=== PATIENT | male | born 1955 | race Caucasian/White ===

== ENCOUNTER 2021-04-05 06:08 | Day surgery (SDC) | payer MEDICARE, OTHER ==
[~2021-04-05 06:08] MED LIST: ACTOPLUS M15 MG/500 PO; CYMBALTA60 MG PO; GLIMEPIRIDE2 MG PO; LISINOPRIL5 MG PO; METFORMIN HCL1000 M1 PO; OMEPRAZOLE DR40 MG PO; PRAMIPEXOLE DI0.5 MG PO; TRAZODONE100 MG PO
[2021-04-05 06:49] VITALS: BP 138/74
[2021-05-02] MEDS ORDERED: ACTOPLUS M15 MG/500 PO (11:24)
[2021-05-02] MEDS ORDERED: OMEPRAZOLE DR40 MG (11:25)
[2021-05-02] MEDS ORDERED: METFORMIN500 M2 PO (11:25)
[2021-05-02] MEDS ORDERED: TRAMADOL HCL50 MG PO (11:25)
[2021-05-02] MEDS ORDERED: AMARYL4 MG PO (11:25)
== END 2021-04-05 07:25 | disposition home or self-care (01) ==
LOC: ENDO 06:08
PROVIDERS: ATTEND Surgery
DX: Z12.11 Encounter for screening for malignant neoplasm of colon (principal); R00.8 Other abnormalities of heart beat; Z53.09 Procedure and treatment not carried out because of other contraindication; I10 Essential (primary) hypertension; E11.9 Type 2 diabetes mellitus without complications; Z79.84 Long term (current) use of oral hypoglycemic drugs; Z86.010 Personal history of colon polyps

== ENCOUNTER 2021-04-13 00:04 | Observation (INO) | payer MEDICARE, OTHER ==
[~2021-04-13] VITALS: Ht 185.4 cm; Wt 86.3 kg
[2021-04-13 01:48] LABS: HEMATOCRIT 37.1 % (39.0-50.0); HEMOGLOBIN 12.5 g/dl (14.0-18.0); IMMATURE GRANULOCYTES 0.2 % (0.0-5.0); MEAN CORPUSCULAR HGB 31.3 pG CALC (26.0-32.0); MEAN CORPUSCULAR HGB CONC 33.7 g/dL CAL (32.0-36.0); NEUT# 9.05 thou/uL (1.82-7.42); RED BLOOD COUNT 3.99 mill/uL (4.70-6.10); RED CELL DISTRI WIDTH 12.9 % (11.5-15.5)
[2021-04-13 02:03] LABS: ALBUMIN 3.3 g/dL (3.2-5.0); ALKALINE PHOSPHATASE 55 u/l (38-126); ANION GAP 10 (6-22 (CALC)); BILIRUBIN, TOTAL 0.4 mg/dL (0.0-1.4); BUN 14 mg/dL (8-23); BUN/CREATININE RATIO 15 (12-20 (CALC)); CARBON DIOXIDE 24 mmol/l (22-30); CHLORIDE 92 mmol/l (95-108); CREATININE 0.9 mg/dL (0.7-1.3); GFR > 60 ML/MIN (>=60 (CALC)); GFR FOR AFR.AMER. > 60 ML/MIN (>=60 (CALC)); POTASSIUM 3.7 mmol/l (3.5-5.1); SGOT/AST 36 u/l (19-48); SODIUM 123 mmol/l (137-146); TOTAL PROTEIN 6.1 g/dL (6.3-8.2)
[2021-04-13 02:15] LABS: MYOGLOBIN 175 ng/mL (0 - 121)
[2021-04-13 05:32] LABS: URINE BILIRUBIN - DIPSTICK NEGATIVE (NEGATIVE); URINE BLOOD DIPSTICK SMALL (NEGATIVE); URINE CLARITY CLEAR; URINE COLOR YELLOW; URINE GLUCOSE - DIPSTICK NEGATIVE (NEGATIVE); URINE KETONE 15 mg/dL (NEGATIVE); URINE NITRITE - DIPSTICK NEGATIVE (Negative); URINE PROTEIN - DIPSTICK NEGATIVE (NEG-TRACE); URINE UROBILINOGEN - DIPSTICK 0.2 E.U./dL (0.2)
[2021-04-13 05:48] LABS: URINE LEUK ESTERASE NEGATIVE (Negative)
[2021-04-13 05:49] LABS: URINE WBC 0-2 WBC/hpf (0-5)
[2021-04-13 05:50] LABS: URINE BACTERIA FEW hpf; URINE EPITHELIAL CELLS FEW EPI/hpf (0-FEW)
[2021-04-13 07:32] VITALS: BP 113/60
[2021-04-13] MEDS ORDERED: AZITHROMYCIN500 MG PO (12:40)
[2021-04-13] MEDS ORDERED: OMNICEF300 M1 PO (12:41)
[2021-05-02] MEDS ORDERED: ACTOPLUS M15 MG/500 PO (11:24)
[2021-05-02] MEDS ORDERED: AMARYL4 MG PO (11:25)
[2021-05-02] MEDS ORDERED: TRAMADOL HCL50 MG PO (11:25)
[2021-05-02] MEDS ORDERED: METFORMIN500 M2 PO (11:25)
[2021-05-02] MEDS ORDERED: OMEPRAZOLE DR40 MG (11:25)
== END 2021-04-13 13:30 | disposition home or self-care (01) ==
LOC: ED 00:04 → ED-I 04:22 → ED 04:41 → ED-I 04:42 → MS2 09:09
PROVIDERS: Emergency Medicine; ADMIT Hospitalist; ATTEND Hospitalist
DX: R91.8 Other nonspecific abnormal finding of lung field (principal); D72.829 Elevated white blood cell count, unspecified; R19.7 Diarrhea, unspecified; E11.649 Type 2 diabetes mellitus with hypoglycemia without coma; E87.1 Hypo-osmolality and hyponatremia; I10 Essential (primary) hypertension; M19.90 Unspecified osteoarthritis, unspecified site; G25.81 Restless legs syndrome; F17.210 Nicotine dependence, cigarettes, uncomplicated; Z20.822 Contact with and (suspected) exposure to COVID-19

== ENCOUNTER 2021-10-11 07:08 | Day surgery (SDC) | payer MEDICARE, OTHER ==
[~2021-10-11 07:08] MED LIST changes: +AMARYL4 MG PO; +AZITHROMYCIN500 MG PO; +DULOXETINE HCL60 MG PO; +LIPITOR20 M1 PO; +METFORMIN500 M2 PO; +METOPROL TAR25 MG PO; +OMNICEF300 M1 PO; +TRAMADOL HCL50 MG PO
[2021-10-11 09:06] VITALS: BP 128/77
--- NOTE | 2021-10-16 08:54 | NUR ---
PER DR VALIENTE, PATHOLOGY FOR COLONOSCOPY WAS NEGATIVE. ALSO REPEAT COLONOSCOPY IN 5 YEARS. I ADVISED THE PATIENT THE SAME. HE DID NOT HAVE ANY QUESTIONS OR CONCERNS. SENT NOTE TO PCP FOR CONTINUITY OF CARE.
== END 2021-10-11 09:30 | disposition home or self-care (01) ==
LOC: ENDO 07:08 → ORM 08:00 → ENDO 09:30
PROVIDERS: ATTEND Surgery
PROC: 0DBN8ZX Excision of Sigmoid Colon, Via Natural or Artificial Opening Endoscopic, Diagnostic (ICD-10-PCS; principal; 2021-10-11)
DX: Z12.11 Encounter for screening for malignant neoplasm of colon (principal); K57.30 Diverticulosis of large intestine without perforation or abscess without bleeding; K63.5 Polyp of colon; K64.8 Other hemorrhoids; I10 Essential (primary) hypertension; E11.9 Type 2 diabetes mellitus without complications; Z79.84 Long term (current) use of oral hypoglycemic drugs; Z86.010 Personal history of colon polyps